=== PATIENT | female | born 1960 | race Caucasian/White ===

== ENCOUNTER 2016-05-23 17:50 | Observation (INO) ==
[2016-05-23] MEDS ORDERED: Aspirin 81 MG TAB.CHEW PO STA (18:35)
[2016-05-23] MEDS ORDERED: Nitroglycerin 0.4 MG TAB.SUBL SL PRN (18:35)
[2016-05-23 18:41] LABS: Basophils % 0.3 %; Eosinophils # 0.2 K/mcL (0.0-0.6); Eosinophils % 2.3 %; Hematocrit 43.5 % (35.3-44.9); Hemoglobin 15.2 g/dL (11.5-15.4); Immature Granulocytes % 0.2 % (0-4); Lymphocytes # 1.8 K/mcL (0.6-4.6); Lymphocytes % 27.8 %; Mean Corpuscular HGB Conc 34.9 g/dL (31.6-35.5); Mean Corpuscular Hemoglobin 30.8 pg (28.0-33.3); Mean Corpuscular Volume 88.1 fL (83.0-100.0); Monocytes # 0.4 K/mcL (0.0-1.3); Monocytes % 5.6 %; Neutrophils # 4.2 K/mcL (1.6-8.9); Platelet Count 217 K/mcL (140-400); Red Blood Count 4.94 M/mcL (3.82-4.97); Segmented Neutrophils % 63.8 %
[2016-05-23 18:45] LABS: INR 1.1; Prothrombin Time 11.8 Seconds (9.4-12.1)
[2016-05-23 18:47] LABS: Activated Partial Thrombo Time 29.1 Seconds (26.0-36.0)
[2016-05-23 18:51] LABS: BUN/Creatinine Ratio 17 (6-26); Blood Urea Nitrogen 16 mg/dL (7-20); Calcium 10.1 mg/dL (8.6-10.8); Carbon Dioxide 24 mEq/L (19-29); Chloride 101 mEq/L (98-109); Glucose 99 mg/dL (70-99); Osmolality,Calculated 291 (280-300); Potassium 2.8 mEq/L (3.5-4.5); Sodium 140 mEq/L (136-145); eGFR For African Americans > 60 (> 60); eGFR For Non-African Americans > 60 (> 60)
[2016-05-23] MEDS ORDERED: *HR* Morphine 2 MG/ML SYRINGE IVP PRN (19:02)
[2016-05-23] MEDS ORDERED: Nitroglycerin 25 MG/250 ML INFUS..BTL IVC SCH (19:15)
[2016-05-23] MEDS ORDERED: 0.9 % Sodium Chloride 500 ML ONE (19:30)
--- NOTE | 2016-05-23 20:11 | Emergency Department Note ---
Disposition Clinical Impression: Chest pain Qualifiers: Chest pain type: other chest pain Qualified Code(s): R07.89 - Other chest pain ; R07.8 - Other chest pain Disposition: Admitted As Inpatient Condition: Critical Referrals: Jose A Gonsalez DO [Primary Care Provider] - Forms: ED Satisfaction Letter Chest Pain HPI - General Chief Complaint: ED Chest Pain Stated Complaint: chest pains Time Seen by Provider: 05/23/16 18:10 Source: patient Limitations: no limitations Vital Signs Reviewed: Yes Nursing Notes Reviewed: Yes - History of Present Illness HPI Narrative: This is a 56-year-old female patient who presents with chest pain that started yesterday. Her chest pain is midsternal and nonradiating. She has no history of cardiac catheterization or stress testing. She has never followed with a oncology rep specialist. She has had no cough or congestion. She denies fever chills or night sweats. She has no history of pulmonary embolism, calf pain, recent travel. Severity scale (1-10): 0 - Related Data Home Medications Medication Instructions Recorded Confirmed Amlodipine Besylate 10 mg PO DAILY 05/23/16 05/23/16 Atorvastatin Calcium [Lipitor] 80 mg PO HS 05/23/16 05/23/16 Calcium Carbonate/Vitamin D3 1 each PO DAILY 05/23/16 05/23/16 [Calcium 500 + Vit D 200 Caplet] CloNIDine HCl 0.1 mg PO BID 05/23/16 05/23/16 Esomeprazole Magnesium [Nexium] 40 mg PO DAILY 05/23/16 05/23/16 Losartan/Hydrochlorothiazide 1 each PO DAILY 05/23/16 05/23/16 [Hyzaar 100-25 Tablet] Potassium Chloride [K-Tab ER] 20 meq PO DAILY 05/23/16 05/23/16 Sertraline [Zoloft] 50 mg PO DAILY 05/23/16 05/23/16 Allergies Allergy/AdvReac Type Severity Reaction Status Date / Time Penicillins Allergy Hives Verified 05/23/16 20:00 All systems ED: reviewed and negative except as stated. Chest Pain PMH - Past Medical History Medical history: Reports: hyperlipidemia, hypertension Psychiatric history: Reports: no psych history - Social History Smoking Status: Never smoker Alcohol use: Reports: none Drug use: Reports: none Physical Exam Alert and oriented in no acute distress [place] warm and dry TMs clear bilaterally, extraocular muscle movements are normal, scleral icterus is absent Oropharynx is clear mucous members are moist Cardiovascular exam shows no murmur, rub, gallop Pulmonary exam shows clear lung sounds bilaterally no rales, rhonchi, wheezing Abdominal exam shows a soft and nontender abdomen Extremities are well perfused without clubbing, cyanosis, edema Neurologic exam shows cranial nerves II through XII grossly intact without any focal deficit - General Limitations: no limitations General appearance: alert, in no apparent distress Course Vital Signs Temperature 98.2 F 05/23/16 17:51 Pulse Rate 97 05/23/16 17:51 Respiratory Rate 18 05/23/16 17:51 Blood Pressure 171/91 05/23/16 17:51 O2 Sat by Pulse Oximetry 95 05/23/16 17:51 Temperature 98.2 F 05/23/16 17:51 Pulse Rate 71 05/23/16 19:01 Respiratory Rate 16 05/23/16 19:01 Blood Pressure 114/77 05/23/16 19:01 O2 Sat by Pulse Oximetry 94 L 05/23/16 19:01 Oxygen Delivery Oxygen Delivery Room Air Chest Pain - MDM Narrative Medical decision making narrative: 56-year-old female patient with chest pain. She does have ongoing chest pain on arrival. EKG shows inferolateral lateral ST segment depression however no ST segment elevation. Her pain is certainly concerning given that it resolves with rest. She does have pain now currently at rest. She has no Pain or leg tenderness. She had no hypoxia or right heart strain on EKG. She was found to be hypokalemic in the emergency department. Magnesium level is pending. Aspirin and nitroglycerin were administered with some improvement of pain. Due to ongoing pain she was started on nitroglycerin infusion. Potassium rider as well as K Greg was given orally. Plan to admit for evaluation of EKG changes and the setting of ongoing chest discomfort. - Medical Records Medical records reviewed: Yes I reviewed the patient's medical records. - Lab Data Lab results reviewed: Yes I reviewed the patient's lab results. Result diagrams: 05/23/16 18:24 05/23/16 18:24 Lab Results 05/23/16 05/23/16 05/23/16 Range/Units 18:24 18:24 18:24 WBC 6.6 (4.3-11.1) K/mcL RBC 4.94 (3.82-4.97) M/mcL Hgb 15.2 (11.5-15.4) g/dL Hct 43.5 (35.3-44.9) % MCV 88.1 (83.0-100.0) fL MCH 30.8 (28.0-33.3) pg MCHC 34.9 (31.6-35.5) g/dL RDW 13.0 (11.5-14.5) % Plt Count 217 (140-400) K/mcL MPV 10.0 (9.4-12.4) fL Immature Gran % 0.2 (0-4) % Seg Neutrophils % 63.8 % Lymphocytes % 27.8 % Monocytes % 5.6 % Eosinophils % 2.3 % Basophils % 0.3 % Neutrophils # 4.2 (1.6-8.9) K/mcL Lymphocytes # 1.8 (0.6-4.6) K/mcL Monocytes # 0.4 (0.0-1.3) K/mcL Eosinophils # 0.2 (0.0-0.6) K/mcL Basophils # 0.0 (0.0-0.2) K/mcL PT 11.8 (9.4-12.1) Seconds INR 1.1 APTT 29.1 (26.0-36.0) Seconds Sodium (136-145) mEq/L Potassium (3.5-4.5) mEq/L Chloride (98-109) mEq/L Carbon Dioxide (19-29) mEq/L BUN (7-20) mg/dL Creatinine (0.57-1.11) mg/dL Est GFR ( Amer) (> 60) Est GFR (Non-Af Amer) (> 60) BUN/Creatinine Ratio (6-26) Glucose (70-99) mg/dL Calculated Osmolality (280-300) Calcium (8.6-10.8) mg/dL Troponin I (0-0.03) ng/mL B-Natriuretic Peptide < 10 (0-100) pg/mL 05/23/16 05/23/16 Range/Units 18:24 18:24 WBC (4.3-11.1) K/mcL RBC (3.82-4.97) M/mcL Hgb (11.5-15.4) g/dL Hct (35.3-44.9) % MCV (83.0-100.0) fL MCH (28.0-33.3) pg MCHC (31.6-35.5) g/dL RDW (11.5-14.5) % Plt Count (140-400) K/mcL MPV (9.4-12.4) fL Immature Gran % (0-4) % Seg Neutrophils % % Lymphocytes % % Monocytes % % Eosinophils % % Basophils % % Neutrophils # (1.6-8.9) K/mcL Lymphocytes # (0.6-4.6) K/mcL Monocytes # (0.0-1.3) K/mcL Eosinophils # (0.0-0.6) K/mcL Basophils # (0.0-0.2) K/mcL PT (9.4-12.1) Seconds INR APTT (26.0-36.0) Seconds Sodium 140 (136-145) mEq/L Potassium 2.8 L (3.5-4.5) mEq/L Chloride 101 (98-109) mEq/L Carbon Dioxide 24 (19-29) mEq/L BUN 16 (7-20) mg/dL Creatinine 0.92 (0.57-1.11) mg/dL Est GFR ( Amer) > 60 (> 60) Est GFR (Non-Af Amer) > 60 (> 60) BUN/Creatinine Ratio 17 (6-26) Glucose 99 (70-99) mg/dL Calculated Osmolality 291 (280-300) Calcium 10.1 (8.6-10.8) mg/dL Troponin I 0.00 (0-0.03) ng/mL B-Natriuretic Peptide (0-100) pg/mL - EKG Data EKG results narrative: 2 EKGs were obtained and these are compared to old EKGs. The first EKG shows ST segment depression in leads 1, 2. Her axis is normal. Intervals were normal. She does have some sloping of the ST segment in leads V5, V6. R-wave progression is normal. EKG to show some improvement in the ST segment changes which are earlier noted especially in leads 1 and lead 2. There is ongoing sloping in V5 and V6. There is no ST segment elevation. Intervals remain normal. Critical Care Time Total Critical Care Time: 31 Attestation: I spent a total of 31 minutes of critical care time evaluating this patient with ongoing chest pain in the setting of EKG changes and acute hypokalemia. She required nitroglycerin infusion and ongoing critical care.
[2016-05-23 20:43] LABS: Albumin 3.6 g/dL (3.5-5.0); BUN/Creatinine Ratio 20 (6-26); Blood Urea Nitrogen 18 mg/dL (7-20); Calcium 9.6 mg/dL (8.6-10.8); Carbon Dioxide 25 mEq/L (19-29); Chloride 104 mEq/L (98-109); Glucose 108 mg/dL (70-99); Osmolality,Calculated 294 (280-300); Phosphorous 3.9 mg/dL (2.3-4.7); Sodium 141 mEq/L (136-145); eGFR For African Americans > 60 (> 60); eGFR For Non-African Americans > 60 (> 60)
[2016-05-24] MEDS ORDERED: Naloxone 0.4 MG/ML INJ IVP PRN (03:15)
[2016-05-24] MEDS ORDERED: Ondansetron 4 MG/2 ML VIAL IVP PRN (03:15)
[2016-05-24] MEDS ORDERED: *HR* Morphine 2 MG/ML SYRINGE IVP PRN (03:15)
[2016-05-24] MEDS ORDERED: Acetaminophen 325 MG TABLET PO PRN (03:15)
[2016-05-24 04:35] LABS: Chol/HDL Ratio 4.5 (0-4.9)
[2016-05-24] MEDS ORDERED: Regadenoson 0.4 MG/5 ML SYRINGE IVP ONE (06:37)
[2016-05-24] MEDS ORDERED: Losartan/HCTZ 50-12.5 TABLET PO SCH (09:00)
[2016-05-24] MEDS ORDERED: amLODIPine 5 MG TABLET PO SCH (09:00)
[2016-05-24] MEDS ORDERED: Calcium 500-Vit D3 PO SCH (09:00)
--- NOTE | 2016-05-24 10:03 | Nuclear Medicine Stress Report ---
Low Level Regadenoson Name: Essence Cervantes Date of Study: 05/24/2016 Date: 1960 Ht: 64.0 in Medical Record#: [id number] Age: 56 Wt: 212.0 lb Gender: Female Order #: [id number] Location: [facility] OP Room: Supervising Provider: Giselle Lewis CNP Reading Physician: Ramandeep Sanchez DO Ordering Physician: Bharathi Chairez MD Primary Care Physician: Jose A Gonsalez DO Stress Technologist: Angelina Carlisle FACILITIES CLERK, CCT Rn Transition: Josiah Delacruz Indications: Chest Pain Impression: Perfusion imaging was negative for ischemia or infarct. Low level exercise ECG was negative for ischemia. Gated EF = >70%. History: Hypertension Hypercholesteremia Stress Test Summary: Stress Test Type: Low level pharmacologic Regadenoson 0.4mg/5ml given IV Baseline Information: Initial Heart Rate: 74 Blood Pressure: 164/82 Stress Information: Stress Time: 4 min 00 sec Test Terminated Due to (primary): As per protocol Maximum Blood Pressure: 180/72 Maximum Heart Rate: 131 Percent Maximum Heart Rate Achieved: 80 Double Product: [id number] METS Reached: 2.1 Symptoms: No chest symptoms Nuclear Summary: SPECT myocardial perfusion imaging using Tc99m Sestamibi given intravenously was performed at rest and following cardiac stress testing. The resting images were obtained following initial dose of 11.6 mCi. Following stress an additional dose of 31 mCi was given at peak exercise or 30 seconds post regadenoson infusion. Medication Given: Time Medication Dose Units Route Findings: Stress Note * Resting ECG demonstrated normal sinus rhythm with nonspecific ST abnormalities. * No arrhythmias were noted during stress. * Patient had no chest pain during stress. * Low level exercise/ pharmacologic stress ECG is negative for ischemia at level of heart rate achieved. Study Quality * Study quality is good. Hemodynamic responses * Normal hemodynamic responses to low level exercise plus pharmacologic stress. Gated EF > 70% * Gated EF > 70%. Left Ventricle * The left ventricle is not dilated. TID * No evidence of transient ischemic dilatation. Lung Uptake * There is no evidence of increase lung uptake. NORMALS * Normal wall motion. * Normal segmental perfusion in stress. * Normal Segmental Perfusion in rest. Updated by Ramandeep Sanchez on 05/24/2016 9:57:20 AM electronically signed on 05/24/2016 9:57:56 AM with status of Final
[2016-05-24 11:19] VITALS: BP 120/72
--- NOTE | 2016-05-24 11:19 | Internal Med History&Physical ---
Date of Encounter: 05/24/16 Time of Encounter: 02:05 Internal Medicine - H&P: HPI Chief complaint: chest pain History of present illness: Ms. Cervantes is a 56 year old female with medical history significant for HTN, HLD, presents with 1-day history of mid-sternal chest pain that started yesterday. Chest pain was non-radiating. It was not associated with nausea, vomiting, diaphoresis, or dizziness. No recent RTI. No fever, chills or rigors. She reports no prior cardiac history or cardiac work-up. She is full code as per discussion. Vital Signs Temperature 98.2 F 05/23/16 17:51 Pulse Rate 97 05/23/16 17:51 Respiratory Rate 18 05/23/16 17:51 Blood Pressure 171/91 05/23/16 17:51 O2 Sat by Pulse Oximetry 95 05/23/16 17:51 Temperature 98.2 F 05/23/16 17:51 Pulse Rate 71 05/23/16 19:01 Respiratory Rate 16 05/23/16 19:01 Blood Pressure 114/77 05/23/16 19:01 O2 Sat by Pulse Oximetry 94 L 05/23/16 19:01 O/E: Not in distress HEENT: No JVD, no LN, not pale, anicteric, afebrile. Chest: Chest pain not reproducible by chest wall palpation. CTAB Heart: RRR, HS1/2 Abdomen: soft, non-tender, no masses : No flank tenderness, no CVA tenderness, no suprapubic tenderness YOUTH MANAGER: aao x 3, no gross focal neurological deficits. Skin: no active skin lesion. Lab Results 05/23/16 05/23/16 05/23/16 Range/Units 18:24 18:24 18:24 WBC 6.6 (4.3-11.1) K/mcL RBC 4.94 (3.82-4.97) M/mcL Hgb 15.2 (11.5-15.4) g/dL Hct 43.5 (35.3-44.9) % MCV 88.1 (83.0-100.0) fL MCH 30.8 (28.0-33.3) pg MCHC 34.9 (31.6-35.5) g/dL RDW 13.0 (11.5-14.5) % Plt Count 217 (140-400) K/mcL MPV 10.0 (9.4-12.4) fL Immature Gran % 0.2 (0-4) % Seg Neutrophils % 63.8 % Lymphocytes % 27.8 % Monocytes % 5.6 % Eosinophils % 2.3 % Basophils % 0.3 % Neutrophils # 4.2 (1.6-8.9) K/mcL Lymphocytes # 1.8 (0.6-4.6) K/mcL Monocytes # 0.4 (0.0-1.3) K/mcL Eosinophils # 0.2 (0.0-0.6) K/mcL Basophils # 0.0 (0.0-0.2) K/mcL PT 11.8 (9.4-12.1) Seconds INR 1.1 APTT 29.1 (26.0-36.0) Seconds Sodium (136-145) mEq/L Potassium (3.5-4.5) mEq/L Chloride (98-109) mEq/L Carbon Dioxide (19-29) mEq/L BUN (7-20) mg/dL Creatinine (0.57-1.11) mg/dL Est GFR ( Amer) (> 60) Est GFR (Non-Af Amer) (> 60) BUN/Creatinine Ratio (6-26) Glucose (70-99) mg/dL Calculated Osmolality (280-300) Calcium (8.6-10.8) mg/dL Troponin I (0-0.03) ng/mL B-Natriuretic Peptide < 10 (0-100) pg/mL 05/23/16 05/23/16 Range/Units 18:24 18:24 WBC (4.3-11.1) K/mcL RBC (3.82-4.97) M/mcL Hgb (11.5-15.4) g/dL Hct (35.3-44.9) % MCV (83.0-100.0) fL MCH (28.0-33.3) pg MCHC (31.6-35.5) g/dL RDW (11.5-14.5) % Plt Count (140-400) K/mcL MPV (9.4-12.4) fL Immature Gran % (0-4) % Seg Neutrophils % % Lymphocytes % % Monocytes % % Eosinophils % % Basophils % % Neutrophils # (1.6-8.9) K/mcL Lymphocytes # (0.6-4.6) K/mcL Monocytes # (0.0-1.3) K/mcL Eosinophils # (0.0-0.6) K/mcL Basophils # (0.0-0.2) K/mcL PT (9.4-12.1) Seconds INR APTT (26.0-36.0) Seconds Sodium 140 (136-145) mEq/L Potassium 2.8 L (3.5-4.5) mEq/L Chloride 101 (98-109) mEq/L Carbon Dioxide 24 (19-29) mEq/L BUN 16 (7-20) mg/dL Creatinine 0.92 (0.57-1.11) mg/dL Est GFR ( Amer) > 60 (> 60) Est GFR (Non-Af Amer) > 60 (> 60) BUN/Creatinine Ratio 17 (6-26) Glucose 99 (70-99) mg/dL Calculated Osmolality 291 (280-300) Calcium 10.1 (8.6-10.8) mg/dL Troponin I 0.00 (0-0.03) ng/mL B-Natriuretic Peptide (0-100) pg/mL CXR: No acute cardiopulmonary process. EKG: NSR, normal intervals and axis, sub-threshold ST segment depression in I/II IMP Atypical chest pain Uncontrolled hypertension Hypokalemia. Chronic morbidities HTN HLD plan Admit Chest pain rule out, cycle troponin, serial EKG, stress test if NC ruled out. Nitroglycerin and morphine for chest pain ASA Adjust antihypertensive regimen to better control blood pressure Evaluate for cardiovascular risk factors with a view to mitigating. Replace potassium, check magnesium No indication for GI/DVT prophylaxis. Continue other medications of chronic morbidities. Past Med Surg Social Fam HX - Past Medical History Medical history: hyperlipidemia, hypertension Psychiatric history: no psych history - Past Surgical History Surgical History: hysterectomy - Social History Smoking Status: Never smoker Smokeless Tobacco Status: No Alcohol use: none Drug use: none - Family History Maternal Grandmother Hx Family Cardiac Disorders: Yes ([place]) Internal Medicine - H&P: Meds Amlodipine Besylate 10 mg PO DAILY 05/23/16 [History] Atorvastatin Calcium [Lipitor] 80 mg PO HS 05/23/16 [History] Calcium Carbonate/Vitamin D3 [Calcium 500-Vit D3 200 Caplet] 1 each PO DAILY [History] CloNIDine HCl 0.1 mg PO BID 05/23/16 [History] Esomeprazole Magnesium [Nexium] 40 mg PO DAILY 05/23/16 [History] Losartan/Hydrochlorothiazide [Hyzaar 100-25 Tablet] 1 each PO DAILY 05/23/16 [ History] Potassium Chloride [K-Tab ER] 20 meq PO DAILY 05/23/16 [History] Sertraline [Zoloft] 50 mg PO DAILY 05/23/16 [History] Allergies Penicillins Allergy (Verified 05/23/16 20:00) Hives All Systems PM: A 10-system review of systems was performed and is negative for pertinent findings except as documented above in the HPI. - Constitutional Vitals: Temp Pulse Resp BP Pulse Ox 98.3 F 82 18 135/85 93 L 05/24/16 04:36 05/24/16 05:57 05/24/16 04:36 05/24/16 05:57 05/24/16 04:36 Internal Med - H&P Results - Labs CBC & Chem 7: 05/23/16 18:24 05/23/16 20:21 Labs: Cardiac Enzymes 05/24/16 Range/Units 04:11 Troponin I 0.01 (0-0.03) ng/mL - VTE Reasons for not Prescribing Prophylaxis: Treatment not Indicated - Low risk for VTE
--- NOTE | 2016-05-24 11:42 | Discharge Summary ---
Date of Encounter: 05/24/16 Time of Encounter: 11:39 - Discharge Diagnosis (1) Chest pain Priority: Primary Status: Acute Qualifiers: Chest pain type: precordial pain Qualified Code(s): R07.2 - Precordial pain (2) Essential hypertension Priority: Secondary Status: Chronic (3) Hiatal hernia Priority: Secondary Status: Chronic (4) Hypokalemia Priority: Secondary Status: Chronic - Discharge Medications Home Medications: Amlodipine Besylate 10 mg PO DAILY 05/23/16 [History] Atorvastatin Calcium [Lipitor] 80 mg PO HS 05/23/16 [History] Calcium Carbonate/Vitamin D3 [Calcium 500-Vit D3 200 Caplet] 1 each PO DAILY [History] CloNIDine HCl 0.1 mg PO BID 05/23/16 [History] Esomeprazole Magnesium [Nexium] 40 mg PO DAILY 05/23/16 [History] Losartan/Hydrochlorothiazide [Hyzaar 100-25 Tablet] 1 each PO DAILY 05/23/16 [ History] Potassium Chloride [K-Tab ER] 20 meq PO DAILY 05/23/16 [History] Sertraline [Zoloft] 50 mg PO DAILY 05/23/16 [History] Allergies/Adverse Reactions: Allergies Penicillins Allergy (Verified 05/23/16 20:00) Hives Procedures/tests Complete & Pending: Procedures Performed prior 72 hours Category Date Time Status NM chester perf SPECT multi [NM] Routine Exams 05/24/16 03:20 Taken SP pharm nuclear stress Routine Y 05/24/16 07:40 Completed Date of admission: 05/23/16 21:08 Primary care physician: Jose A Gonsalez Discharging clinician: Mayda Charlton Anticipated date of discharge: 05/24/16 - Patient Status Disposition: Home, Self-Care Condition: Good Functional capacity at discharge: independent ambulation Overall status at discharge: patient is back to baseline - Discharge Instructions Instructions: Chest Pain (DC) Follow Up With: Jose A Gonsalez DO [Primary Care Provider] - (in 1-2 weeks) - Diet and Activity Activity: increase activity as tolerated Diet: low fat, low cholesterol, low salt diet Hospital course: Ms. Cervantes is a 56 year old female patient with history of essential hypertension , hyperlipidemia who presented to the year with complaints of chest pain. She was observed in the hospital under telemetry. Her troponins were trended. Her EKG did not show any acute ST segment changes suggestive of ischemia. Patient then underwent a cardiac stress test which did not show any signs suggestive of ischemia. Her chest pain has now subsided. Patient does have a history of poorly controlled hypertension and her blood pressure had been at 180/110s prior to presentation. This could be contributing to her chest pain. Her blood pressure improved after she was placed back on her usual antihypertensive regimen. She is advised to stay compliant with her antihypertensive medications. She also has a history of chronic hypokalemia and on presentation her potassium was 3. She received oral and intravenous supplementation. She should continue to take oral potassium supplements as prescribed. She has a history of hiatal hernia and takes nexium. - Time Spent with Patient Total time spent providing and/or coordinating discharge services: Less than 30 minutes (25 min) - Constitutional Vitals: Temp Pulse Resp BP Pulse Ox 98.2 F 84 18 120/72 93 L 05/24/16 11:15 05/24/16 11:15 05/24/16 11:15 05/24/16 11:15 05/24/16 11:15 General appearance: Present: cooperative, A&O X 3, pleasant, no acute distress, answers questions appropriately - Respiratory Respiratory exam: Present: CTAB. Absent: accessory muscle use, rales, rhonchi, wheezes - Cardiovascular Cardiovascular exam: Present: RRR, +S1, +S2. Absent: diastolic murmur, gallop, rubs, systolic murmur - Extremities Exam Extremities exam: Present: warm, radial pulses palpable and symetrical. Absent : calf tenderness, cyanotic, pedal edema - Neurological Exam Neurological exam: Present: CN II-XII intact, oriented X3, no focal deficits. Absent: pronater drift, facial droop, speech deficit - VTE Reasons for not Prescribing Prophylaxis: Treatment not Indicated - Low risk for VTE - Attending Attestation This document has been at least partially created by demandmart recognition technology by Dr. Charlton. Errors in grammar, wording or other phrases may exist. If errors are found after the documentation is signed, they will be addressed individually in the addendum section of this document when appropriate.
--- NOTE | 2016-05-24 21:18 | Electrocardiograph Report ---
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
--- NOTE | 2016-05-24 21:20 | Electrocardiograph Report ---
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
== END 2016-05-24 12:02 | disposition home or self-care (01) ==
LOC: EMEROO 17:50 → 2ANU 17:50 → SUATTDRO 21:08 → 2ANU 21:32
PROVIDERS: ADMIT Family Medicine; ATTEND Internal Medicine